=== PATIENT | female | born 1985 | race Caucasian/White ===

== ENCOUNTER 2024-03-06 00:45 | Emergency (ER) | payer MEDICAID ==
[2024-03-06] MEDS ORDERED: Sodium Chloride 0.9% 10 ML Syringe FLUSH PRN (01:05)
[2024-03-06] MEDS: fentaNYL 100 MCG/2 ML SDV IVPUSH PRN (01:17)
[2024-03-06] MEDS: Ondansetron 4 MG/2 ML SDV IVPUSH ONE (01:17)
[2024-03-06 01:25] LABS: BILIRUBIN,URINE NEGATIVE (NEGATIVE); GLUCOSE,URINE NORMAL (NORMAL); KETONES,URINE NEGATIVE (NEGATIVE); LEUKOCYTE ESTERASE,URINE NEGATIVE (NEGATIVE); NITRITE,URINE NEGATIVE (NEGATIVE); OCCULT BLOOD,URINE NEGATIVE (NEGATIVE); PROTEIN,URINE NEGATIVE (NEGATIVE); UROBILINOGEN,URINE NORMAL (NEGATIVE)
[2024-03-06 01:29] LABS: BASOPHILS PERCENT AUTO 0.3 % (0.2-1.5); BLOOD UREA NITROGEN,BUN 11 mg/dL (7-18); BUN/CREATININE RATIO 13.8 (9-20); CALCIUM 9.3 mg/dL (8.6-10.2); CARBON DIOXIDE,CO2 24 mmol/L (21-32); CHLORIDE,CL 101 mmol/L (100-110); CREATININE 0.8 mg/dL (0.55-1.02); EOSINOPHILS ABSOLUTE AUTO 0.1 x10-3/uL (0.0-0.8); EOSINOPHILS PERCENT AUTO 1.1 % (0.6-8.1); ESTIMATED GFR 95 mL/min (>60); GLUCOSE RANDOM 115 mg/dL (80-116); HEMATOCRIT 28.2 % (34.2-48.2); HEMOGLOBIN 9.2 g/dL (11.4-15.5); LYMPHOCYTES ABSOLUTE AUTO 2.9 x10-3/uL (1.0-4.4); LYMPHOCYTES PERCENT AUTO 27.3 % (18.4-52.1); MEAN CORPUSCULAR HEMOGLOBIN 29.8 pg (23.9-33.9); MEAN CORPUSCULAR HGB CONC 32.7 g/dL (31.9-34.8); MEAN PLATELET VOLUME 7.7 fL (7.1-12.4); MONOCYTES ABSOLUTE AUTO 0.7 x10-3/uL (0.3-1.0); MONOCYTES PERCENT AUTO 6.4 % (4.4-15.7); NEUTROPHILS ABSOLUTE AUTO 6.9 x10-3/uL (1.5-6.3); PLATELET COUNT,PLT 363 x10(3)uL (151-488); POTASSIUM,K 3.3 mmol/L (3.5-5.3); RED CELL DISTRIBUTION WIDTH 13.2 % (12.3-16.5); SODIUM,NA 138 mmol/L (135-145); WHITE BLOOD CELL COUNT,WBC 10.6 x10-3/uL (3.0-10.3)
[2024-03-06 01:30] LABS: APPEARANCE,URINE CLEAR (CLEAR); COLOR,URINE YELLOW (YELLOW)
[2024-03-06 01:40] LABS: ALBUMIN 3.7 g/dL (3.5-5.2); ALKALINE PHOSPHATASE 114 IU/L (56-112); ASPARTATE AMNIOTRANSFERASE,AST 142 IU/L (5-25); BILIRUBIN TOTAL 0.4 mg/dL (0.1-1.3); PROTEIN TOTAL,TP 7.3 g/dL (6.0-8.0)
[2024-03-06 01:42] LABS: ALANINE AMINOTRANSFERASE,ALT 185 U/L (12-36)
[2024-03-06] MEDS: Iopamidol 755 Mg/ML 100 ML Bottle IV SCH (02:08)
[2024-03-06] MEDS: Metoclopramide 10 MG/2 ML SDV IVPUSH ONE (02:36)
[2024-03-06] MEDS: Sodium Chloride 0.9% 1,000 ML IV SCH (02:36)
== END 2024-03-06 03:57 ==
LOC: FB.ED 00:45
DX: K86.3 Pseudocyst of pancreas (principal); K85.90 Acute pancreatitis without necrosis or infection, unspecified; K86.1 Other chronic pancreatitis
CPT/HCPCS: 36415; 74177; 80053; 81003; 82150; 83690; 84484; 85025; 93005; 96361; 96374; 96375; 99285; J2405; J2765; J3010; J7030; Q9967

== ENCOUNTER 2024-05-16 11:06 | Inpatient (IN) | payer MEDICAID ==
[2024-05-16] MEDS ORDERED: Naloxone 0.4 MG/ML SDV IVPUSH PRN (11:19)
[2024-05-16 11:34] LABS: BASOPHILS PERCENT AUTO 0.2 % (0.2-1.5); EOSINOPHILS PERCENT AUTO 0.1 % (0.6-8.1); HEMATOCRIT 31.8 % (34.2-48.2); HEMOGLOBIN 10.2 g/dL (11.4-15.5); LYMPHOCYTES ABSOLUTE AUTO 0.8 x10-3/uL (1.0-4.4); LYMPHOCYTES PERCENT AUTO 7.1 % (18.4-52.1); MEAN CORPUSCULAR HEMOGLOBIN 26.4 pg (23.9-33.9); MEAN CORPUSCULAR HGB CONC 32.2 g/dL (31.9-34.8); MEAN CORPUSCULAR VOLUME 82.1 fL (76.7-100.5); MEAN PLATELET VOLUME 7.7 fL (7.1-12.4); MONOCYTES PERCENT AUTO 0.2 % (4.4-15.7); NEUTROPHILS ABSOLUTE AUTO 10.6 x10-3/uL (1.5-6.3); NEUTROPHILS PERCENT AUTO 92.4 % (30.8-76.2); PLATELET COUNT,PLT 579 x10(3)uL (151-488); RED BLOOD CELL COUNT 3.87 x10(6)uL (3.60-5.20); RED CELL DISTRIBUTION WIDTH 18.4 % (12.3-16.5); WHITE BLOOD CELL COUNT,WBC 11.4 x10-3/uL (3.0-10.3)
[2024-05-16] MEDS: Sodium Chloride 0.9% 1,000 ML IV ONE ×2 (11:35→12:40)
[2024-05-16] MEDS: Metoclopramide 10 MG/2 ML SDV IVPUSH ONE (11:35)
[2024-05-16] MEDS: fentaNYL 100 MCG/2 ML SDV IVPUSH ONE ×2 (11:40→14:04)
[2024-05-16 11:41] LABS: BLOOD UREA NITROGEN,BUN 16 mg/dL (7-18); CALCIUM 9.1 mg/dL (8.6-10.2); CARBON DIOXIDE,CO2 24 mmol/L (21-32); CHLORIDE,CL 97 mmol/L (100-110); CREATININE 0.8 mg/dL (0.55-1.02); EST CRCL DRUG DOSING (CG) 83.27 mL/min; ESTIMATED GFR 95 mL/min (>60); GLUCOSE RANDOM 129 mg/dL (80-116); POTASSIUM,K 3.2 mmol/L (3.5-5.3); SODIUM,NA 135 mmol/L (135-145)
[2024-05-16 11:45] LABS: BASE EXCESS VENOUS,POC -6 mmol/L (-2 - 3+); PCO2 VENOUS,POC 37 mmHg (41-51); PH VENOUS,POC 7.33 pH Units (7.32-7.43)
[2024-05-16] MEDS: Sodium Chloride 0.9% 10 ML Syringe FLUSH PRN (11:45)
[2024-05-16 11:47] LABS: A/G RATIO 0.8; ALANINE AMINOTRANSFERASE,ALT 38 U/L (12-36); ALBUMIN 3.4 g/dL (3.5-5.2); ALKALINE PHOSPHATASE 400 IU/L (56-112); ASPARTATE AMNIOTRANSFERASE,AST 53 IU/L (5-25); BILIRUBIN TOTAL 1.1 mg/dL (0.1-1.3); PROTEIN TOTAL,TP 7.6 g/dL (6.0-8.0)
[2024-05-16 11:49] LABS: MAGNESIUM 1.2 mg/dL (1.8-2.5); TROPONIN I 4.5 pg/mL (4.0-60.3)
[2024-05-16] MEDS: Magnesium Sulfate/Water Premix 2 GM in Premix Bag 1 BAG IV ONE ×2 (14:02→15:33)
[2024-05-16 14:04] LABS: BILIRUBIN,URINE NEGATIVE (NEGATIVE); GLUCOSE,URINE NORMAL (NORMAL); KETONES,URINE NEGATIVE (NEGATIVE); LEUKOCYTE ESTERASE,URINE NEGATIVE (NEGATIVE); NITRITE,URINE NEGATIVE (NEGATIVE); OCCULT BLOOD,URINE MODERATE (NEGATIVE); PROTEIN,URINE NEGATIVE (NEGATIVE); UROBILINOGEN,URINE NORMAL (NEGATIVE)
[2024-05-16 14:05] LABS: APPEARANCE,URINE CLEAR (CLEAR); BACTERIA,URINE FEW (NS); COLOR,URINE YELLOW (YELLOW); RBC,URINE 0-5 (0-5); SQUAMOUS EPITHELIAL CELLS,UR MODERATE (NS,R,O); WBC,URINE 0-5 (0-5)
[2024-05-16] MEDS: Sodium Chloride 0.9% 1,000 ML IV SCH (15:33)
[2024-05-16 15:34] LABS: HEMATOCRIT 23.7 % (34.2-48.2); HEMOGLOBIN 7.7 g/dL (11.4-15.5); WHITE BLOOD CELL COUNT,WBC 17.8 x10-3/uL (3.0-10.3)
[2024-05-16 15:35] LABS: MEAN CORPUSCULAR HEMOGLOBIN 26.4 pg (23.9-33.9); MEAN CORPUSCULAR HGB CONC 32.3 g/dL (31.9-34.8); MEAN CORPUSCULAR VOLUME 81.6 fL (76.7-100.5); MEAN PLATELET VOLUME 7.3 fL (7.1-12.4); PLATELET COUNT,PLT 323 x10(3)uL (151-488); RED CELL DISTRIBUTION WIDTH 18.2 % (12.3-16.5)
[2024-05-16 15:44] LABS: BAND PERCENT MAN 2 % (0-6); LYMPHOCYTES PERCENT MAN 5 % (13-37); MONOCYTES PERCENT MAN 1 % (4-12); SEG NEUTROPHILS PERCENT MAN 92 % (46-82)
[2024-05-16] MEDS: Ketorolac 15 MG/ML SDV IVPUSH PRN (16:29)
[2024-05-16] MEDS: Potassium Chloride 20 MEQ in Premix Bag 1 BAG IV SCH (17:39)
[2024-05-16] MEDS: LORazepam 2 MG/ML SDV IV PRN (17:49)
[2024-05-17] MEDS: Morphine 2 MG/ML SYRINGE IVPUSH PRN (01:13)
[2024-05-17] MEDS: Ondansetron 4 MG/2 ML SDV IV PRN (01:21)
[2024-05-17 06:40] LABS: HEMATOCRIT 24.9 % (34.2-48.2); HEMOGLOBIN 8.2 g/dL (11.4-15.5); MEAN CORPUSCULAR HEMOGLOBIN 26.7 pg (23.9-33.9); MEAN CORPUSCULAR HGB CONC 32.7 g/dL (31.9-34.8); MEAN CORPUSCULAR VOLUME 81.4 fL (76.7-100.5); MEAN PLATELET VOLUME 7.7 fL (7.1-12.4); PLATELET COUNT,PLT 299 x10(3)uL (151-488); RED BLOOD CELL COUNT 3.06 x10(6)uL (3.60-5.20); RED CELL DISTRIBUTION WIDTH 18.4 % (12.3-16.5); WHITE BLOOD CELL COUNT,WBC 16.1 x10-3/uL (3.0-10.3)
[2024-05-17 06:51] LABS: A/G RATIO 0.7; ALANINE AMINOTRANSFERASE,ALT 28 U/L (12-36); ALBUMIN 2.4 g/dL (3.5-5.2); ALKALINE PHOSPHATASE 249 IU/L (56-112); ASPARTATE AMNIOTRANSFERASE,AST 32 IU/L (5-25); BILIRUBIN TOTAL 0.6 mg/dL (0.1-1.3); BLOOD UREA NITROGEN,BUN 8 mg/dL (7-18); CALCIUM 8.2 mg/dL (8.6-10.2); CARBON DIOXIDE,CO2 21 mmol/L (21-32); CHLORIDE,CL 105 mmol/L (100-110); CREATININE 0.5 mg/dL (0.55-1.02); EST CRCL DRUG DOSING (CG) 133.24 mL/min; ESTIMATED GFR 121 mL/min (>60); GLUCOSE RANDOM 102 mg/dL (80-116); MAGNESIUM 1.7 mg/dL (1.8-2.5); POTASSIUM,K 4.3 mmol/L (3.5-5.3); PROTEIN TOTAL,TP 5.8 g/dL (6.0-8.0); SODIUM,NA 136 mmol/L (135-145)
[2024-05-17 07:04] LABS: BAND PERCENT MAN 1 % (0-6); EOSINOPHILS PERCENT MAN 1 % (0-5); LYMPHOCYTES PERCENT MAN 2 % (13-37); MONOCYTES PERCENT MAN 2 % (4-12); NRBC MANUAL 1 /100WBC (0-0); SEG NEUTROPHILS PERCENT MAN 94 % (46-82)
[2024-05-17 07:05] LABS: ANISOCYTOSIS FEW
[2024-05-17] MEDS: HYDROmorphone 2 MG/ML SDV IVPUSH PRN (09:25)
[2024-05-17] MEDS: Magnesium Sulfate/Water Premix 2 GM in Premix Bag 1 BAG IV ONE (10:21)
[2024-05-17] MEDS: Ketorolac 30 MG/ML SDV IVPUSH PRN (14:03)
[2024-05-17] MEDS: Zolpidem 10 MG Tab PO SCH (20:34)
[2024-05-18 06:40] LABS: BASOPHILS PERCENT AUTO 0.1 % (0.2-1.5); EOSINOPHILS PERCENT AUTO 0.2 % (0.6-8.1); HEMATOCRIT 25.4 % (34.2-48.2); HEMOGLOBIN 8.5 g/dL (11.4-15.5); LYMPHOCYTES ABSOLUTE AUTO 1.1 x10-3/uL (1.0-4.4); LYMPHOCYTES PERCENT AUTO 10.7 % (18.4-52.1); MEAN CORPUSCULAR HEMOGLOBIN 27.1 pg (23.9-33.9); MEAN CORPUSCULAR HGB CONC 33.2 g/dL (31.9-34.8); MEAN CORPUSCULAR VOLUME 81.4 fL (76.7-100.5); MEAN PLATELET VOLUME 7.6 fL (7.1-12.4); MONOCYTES ABSOLUTE AUTO 0.7 x10-3/uL (0.3-1.0); MONOCYTES PERCENT AUTO 7.1 % (4.4-15.7); NEUTROPHILS ABSOLUTE AUTO 8.1 x10-3/uL (1.5-6.3); NEUTROPHILS PERCENT AUTO 81.9 % (30.8-76.2); PLATELET COUNT,PLT 283 x10(3)uL (151-488); RED CELL DISTRIBUTION WIDTH 18.6 % (12.3-16.5); WHITE BLOOD CELL COUNT,WBC 9.9 x10-3/uL (3.0-10.3)
[2024-05-18 06:43] LABS: A/G RATIO 0.7; ALANINE AMINOTRANSFERASE,ALT 24 U/L (12-36); ALBUMIN 2.6 g/dL (3.5-5.2); ALKALINE PHOSPHATASE 228 IU/L (56-112); ASPARTATE AMNIOTRANSFERASE,AST 27 IU/L (5-25); BILIRUBIN TOTAL 0.4 mg/dL (0.1-1.3); CALCIUM 8.5 mg/dL (8.6-10.2); CARBON DIOXIDE,CO2 24 mmol/L (21-32); CHLORIDE,CL 104 mmol/L (100-110); CREATININE 0.5 mg/dL (0.55-1.02); EST CRCL DRUG DOSING (CG) 133.24 mL/min; ESTIMATED GFR 121 mL/min (>60); GLUCOSE RANDOM 112 mg/dL (80-116); MAGNESIUM 1.6 mg/dL (1.8-2.5); POTASSIUM,K 3.6 mmol/L (3.5-5.3); PROTEIN TOTAL,TP 6.3 g/dL (6.0-8.0); SODIUM,NA 137 mmol/L (135-145)
[2024-05-18 06:54] LABS: BLOOD UREA NITROGEN,BUN < 5 mg/dL (7-18)
[2024-05-18 06:56] LABS: RED BLOOD CELL COUNT 3.12 x10(6)uL (3.60-5.20)
[2024-05-18] MEDS: Magnesium Sulfate/Water Premix 2 GM in Premix Bag 1 BAG IV ONE (09:17)
[2024-05-18] MEDS: amLODIPine 5 MG Tab PO ONE (09:21)
== END 2024-05-18 11:30 | disposition home or self-care (01) | DRG 439 ==
LOC: FB.ED 11:06 → FB.MS 14:31
PROVIDERS: ADMIT Family Medicine; ATTEND Family Medicine
DX: K85.90 Acute pancreatitis without necrosis or infection, unspecified (principal); E87.20 Acidosis, unspecified; E86.0 Dehydration; F90.9 Attention-deficit hyperactivity disorder, unspecified type; F41.9 Anxiety disorder, unspecified; F32.A Depression, unspecified; F43.10 Post-traumatic stress disorder, unspecified; K86.1 Other chronic pancreatitis; D64.89 Other specified anemias; E83.42 Hypomagnesemia; E87.6 Hypokalemia; F10.10 Alcohol abuse, uncomplicated; Z79.899 Other long term (current) drug therapy; Z87.891 Personal history of nicotine dependence
CPT/HCPCS: 36415; 80053; 81001; 81025; 83605; 83615; 83690; 83735; 84484; 85025; 93005; 93010; 94150; 96361; 96365; 96375; 99222; 99232; 99238; 99285; 99285-25; A9270-GY; J1171; J1885; J2060; J2270; J2405; J2765; J3010; J3475; J3480; J3490; J7030